=== PATIENT | female | born 1990 | race Caucasian/White ===

== ENCOUNTER 2020-03-01 07:50 | Emergency (ER) | payer OTHER ==
[~2020-03-01] VITALS: Ht 167.6 cm; Wt 65.8 kg
[~2020-03-01 07:50] MED LIST: PERCOCET 5-3251 EACH PO
[2020-03-01] MEDS ORDERED: CLONIDINE HCL0.2 M2 PO ×2 (08:05→08:06)
[2020-03-01] MEDS ORDERED: CLINDAMYCIN HC300 MG PO (09:04)
[2020-03-01] MEDS ORDERED: TRAMADOL 50 MG50 MG PO (09:04)
[2020-03-01 09:49] VITALS: BP 104/65
== END 2020-03-01 09:49 | disposition home or self-care (01) ==
LOC: ER 07:50
DX: K04.7 Periapical abscess without sinus (principal); F17.210 Nicotine dependence, cigarettes, uncomplicated; Z88.8 Allergy status to other drugs, medicaments and biological substances; Z88.0 Allergy status to penicillin; Z88.5 Allergy status to narcotic agent; Z79.899 Other long term (current) drug therapy